=== PATIENT | male | born 1960 | race Caucasian/White ===

== ENCOUNTER → 2016-10-14 | Outpatient (CLI) | payer OTHER ==
[~2016-10-14] MED LIST: ASPI-435 PO; CALC500C70 PO; CHOL100010 PO; CHOL100027 PO; FSM70 PO; LINA1TAB6 PO; LISI-461 PO; MULT-190 PO; SIMV-151 PO; TRIA1SPR4 NAE
[2016-10-14 13:32] LABS: BLOOD UREA NITROGEN 13 mg/dl (7-18); BUN/CREATININE RATIO 16.1 (10-20); CALCIUM 9.1 mg/dl (8.5-10.1); CARBON DIOXIDE 30 mmol/L (21-32); CHLORIDE 105 mmol/L (98-107); GLUCOSE 124 mg/dl (70-99); POTASSIUM 3.9 mmol/L (3.5-5.1); SODIUM 141 mmol/L (136-145)
[2016-10-14 13:43] LABS: THYROID STIMULATING HORMONE 0.348 uIu/ml (0.300-4.500)
[2016-10-14 14:00] LABS: ESTIMATED AVERAGE GLUCOSE 128 mg/dl; HA1C FLAG Normal (Normal)
== END | disposition home or self-care (01) ==
LOC: C.LAB 12:01
PROVIDERS: ATTEND Internal Medicine Geriatric Medicine
DX: E11.9 Type 2 diabetes mellitus without complications (principal); I10 Essential (primary) hypertension; E05.90 Thyrotoxicosis, unspecified without thyrotoxic crisis or storm

== ENCOUNTER 2017-01-01 15:38 | Emergency (ER) | payer OTHER ==
[~2017-01-01] VITALS: Ht 167.6 cm; Wt 64.4 kg
[~2017-01-01 15:38] MED LIST changes: -CHOL100027 PO
[2017-01-01 15:42] VITALS: TEMP 36.8; Ht 167.6 cm; Wt 64.4 kg
[2017-01-01] MEDS ORDERED: SODIUM CHLORIDE 0.9% 1000ML 1,000 ML IV STA (16:27)
[2017-01-01] MEDS ORDERED: CHOL100027 PO (16:29)
[2017-01-01] MEDS ORDERED: OPTIRAY 320 IV PRN (16:45)
[2017-01-01 16:48] VITALS: O2SAT 98
[2017-01-01 16:57] LABS: BASO % 0.3 %; BASO ABS # 0.02 K/uL (0-0.2); COMPLETE YES; EOS % 0.5 %; HEMATOCRIT 46.4 % (42-52); IG% 0.3 %; LYMPH % 13.4 %; LYMPH ABS # 0.99 K/uL (1.2-3.4); MEAN CELL VOLUME 92.1 fL (80-100); MEAN CORPUSCULAR HEMOGLOBIN 31.5 pg (25-34); MEAN CORPUSCULAR HGB CONC 34.3 g/dl (32-36); MEAN PLATELET VOLUME 10.6 fL (7.4-10.4); MONO % 5.9 %; NEUT % 79.6 %; PLATELET COUNT 193 K/uL (130-400); RED BLOOD COUNT 5.04 M/uL (4.7-6.1); WHITE BLOOD COUNT 7.41 K/uL (4.8-10.8)
[2017-01-01 17:05] LABS: ISTAT CREATININE 0.7 mg/dl (0.6-1.3); ISTAT IONIZED CALCIUM 1.2 mmol/l (1.12-1.32)
[2017-01-01 17:10] LABS: URINE APPEARANCE CLOUDY (CLEAR); URINE BILIRUBIN NEG (NEG); URINE COLOR YELLOW; URINE NITRITE NEG (NEG); URINE PH 8.5 (4.5-7.5); URINE SPECIFIC GRAVITY 1.013 (1.000-1.030); UROBILINOGEN NEG (NEG)
[2017-01-01 17:11] LABS: MANUAL MICROSCOPIC REQUIRED? NO; REVIEW REQ? NO
[2017-01-01 17:27] LABS: BUN/CREATININE RATIO 12.6 (10-20); CALCIUM 9.3 mg/dl (8.5-10.1); CREATININE 0.78 mg/dl (0.60-1.40); POTASSIUM 3.5 mmol/L (3.5-5.1)
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
--- NOTE | 2017-01-01 18:32 | DIAGNOSTIC IMAGING REPORT ---
LEFT KNEE 3 VIEWS HISTORY: Left knee pain. COMPARISON: None. FINDINGS: There is no fracture or dislocation. No knee effusion. Punctate densities inferior to the patella on the lateral view and along the superior border of the patella on the frontal view likely represent artifact on the film. No definite radiopaque foreign bodies. IMPRESSION: No fractures. Electronically signed by: Donald Boyd M.D. 01/01/2017 6:31 PM Dictated Date/Time: 01/01/2017 6:29 PM
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
[2017-01-01 20:20] VITALS: BP 128/70; PULSE 70; O2SAT 97
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
== END 2017-01-01 20:21 | disposition home or self-care (01) ==
LOC: EDBD 15:38 → C.EDB 15:38
DX: S22.22XA Fracture of body of sternum, initial encounter for closed fracture (principal); V43.52XA Car driver injured in collision with other type car in traffic accident, initial encounter; Y92.488 Other paved roadways as the place of occurrence of the external cause; F79 Unspecified intellectual disabilities; Z79.82 Long term (current) use of aspirin; Z79.899 Other long term (current) drug therapy

== ENCOUNTER → 2017-07-01 | Outpatient (CLI) | payer OTHER ==
[~2017-07-01] MED LIST changes: -CHOL100010 PO; +CHOL100027 PO; -TRIA1SPR4 NAE
== END | disposition home or self-care (01) ==
LOC: C.MAMM 11:26
PROVIDERS: ATTEND Internal Medicine Geriatric Medicine
DX: M81.0 Age-related osteoporosis without current pathological fracture (principal)

== ENCOUNTER → 2017-11-18 | Outpatient (CLI) | payer OTHER ==
[2017-11-18 14:47] LABS: BASO % 0.4 %; BASO ABS # 0.02 K/uL (0-0.2); EOS % 1.3 %; EOS ABS # 0.06 K/uL (0-0.5); HEMATOCRIT 45.3 % (42-52); HEMOGLOBIN 15.8 g/dL (14.0-18.0); IG# 0.01 K/uL (0.00-0.02); LYMPH % 32.6 %; LYMPH ABS # 1.51 K/uL (1.2-3.4); MEAN CELL VOLUME 92.1 fL (80-100); MEAN CORPUSCULAR HEMOGLOBIN 32.1 pg (25-34); MEAN CORPUSCULAR HGB CONC 34.9 g/dl (32-36); MEAN PLATELET VOLUME 10.8 fL (7.4-10.4); MONO ABS # 0.28 K/uL (0.11-0.59); NEUT % 59.5 %; NEUT ABS # 2.75 K/uL (1.4-6.5); PLATELET COUNT 193 K/uL (130-400); RED CELL DISTRIBUTION WIDTH CV 12.1 % (11.5-14.5); RED CELL DISTRIBUTION WIDTH SD 40.7 fL (36.4-46.3); WHITE BLOOD COUNT 4.63 K/uL (4.8-10.8)
[2017-11-18 15:19] LABS: ALBUMIN 4.2 gm/dl (3.4-5.0); ALT/SGPT 23 U/L (12-78); AST/SGOT 9 U/L (15-37); BLOOD UREA NITROGEN 13 mg/dl (7-18); CALCIUM 8.8 mg/dl (8.5-10.1); CARBON DIOXIDE 30 mmol/L (21-32); CHOLESTEROL 86 mg/dl (0-200); CREATININE 0.83 mg/dl (0.60-1.40); GLUCOSE 121 mg/dl (70-99); POTASSIUM 3.7 mmol/L (3.5-5.1); SODIUM 138 mmol/L (136-145)
[2017-11-18 15:22] LABS: T3 FREE 3.36 pg/ml (2.30-4.20)
[2017-11-18 15:28] LABS: ALKALINE PHOSPHATASE 58 U/L (45-117); LDL CHOLESTEROL CALCULATED 26 mg/dl; TOTAL PROTEIN 7.2 gm/dl (6.4-8.2)
== END | disposition home or self-care (01) ==
LOC: C.LAB 13:32
PROVIDERS: ATTEND Internal Medicine Geriatric Medicine
DX: E11.9 Type 2 diabetes mellitus without complications (principal); I10 Essential (primary) hypertension; E05.90 Thyrotoxicosis, unspecified without thyrotoxic crisis or storm; M81.0 Age-related osteoporosis without current pathological fracture; E78.5 Hyperlipidemia, unspecified; F09 Unspecified mental disorder due to known physiological condition

== ENCOUNTER 2021-04-24 13:00 | Observation (INO) ==
[2021-04-24] MEDS ORDERED: dexAMETHasone**PF** 10 MG/ML VIAL IV ONE (14:09)
--- NOTE | 2021-04-24 14:12 | Emergency Department Note ---
Impression & Plan Angio-edema, Intellectual disability ED Provider Note NAME: GABRIEL BONILLA AGE: 60 SEX: M : 1960 ARRIVES VIA: Walk-In INFORMANT: Patient ED PROVIDER(S): Rigo Harrington DO CHIEF COMPLAINT: Swelling of the tongue HPI: Patient is a 60-year-old male who presents the ER for swelling of the tongue. He has had this before and he was on lisinopril and he stopped it. He woke up this morning and noticed having increased swelling again. He feels exactly the same. He denies any headache or change in vision. He is having trouble swallowing food. No shortness of breath. No chest pain, belly pain, nausea, vomiting, or diarrhea. No other exacerbating or remitting factors. ROS: See above HPI for pertinent positives & negatives. A total of 10 systems reviewed and were otherwise negative. PAST MEDICAL HISTORY:See Below PAST SURGICAL HISTORY:See Below FAMILY HISTORY:See Below SOCIAL HISTORY:See Below HOME MEDICATIONS:See Below ALLERGIES:See Below VITALS:See Below PHYSICAL EXAMINATION: GENERAL: Sitting up in bed, alert, well appearing, well nourished, no distress, non-toxic EYE EXAM: normal conjunctiva. PERRL and EOM's grossly intact. OROPHARYNX: Watery edema swelling of the tongue bilaterally. Right slightly worse than left. Hoarse voice. Swallowing secretions. NECK: supple, no nuchal rigidity, no adenopathy, non-tender LUNGS: Clear to auscultation. Normal chest wall mechanics HEART: no murmurs, S1 normal and S2 normal ABDOMEN: abdomen soft, non-tender, normo-active bowel sounds, no masses, no rebound or guarding. UPPER EXTREMITIES: upper extremities are grossly normal. LOWER EXTREMITIES: No pitting edema. NEURO EXAM: Normal sensorium, cranial nerves II-XII grossly intact, normal speech, no gross weakness of arms, no gross weakness of legs. MEDICAL DECISION MAKING: Patient is a 60-year-old male who presents the ER for swelling of his tongue. He stopped his lisinopril about a week ago as he had this before. IV was established blood was obtained. Labs show no significant leukocytosis or anemia . BMP shows a slightly elevated glucose. He was given some IV insulin. Covid was negative. He was given steroids as well with the edema although I favor this will likely not be beneficial as it is likely angioedema with the watery edema of the tongue. Tongue swelling did improve slightly. With the significant swelling did elect to watch him overnight discussed with Dr. Arriaga. Patient was updated bedside. Triage Nursing notes reviewed. Limited review of prior medical records performed Vital Signs: reviewed and remarkable for HTN Differential diagnosis: Infection, dehydration, metabolic abnormality, hypo/hyperglycemia, electrolyte disturbance, anemia, hypoxia, cardiac sources, intracerebral event, toxicologic, neurologic, as well as other pathologies. ER treatment provided: See below Diagnostics interpreted by me: ECG: none Cardiac Monitoring: An order was placed for continuous cardiac monitoring. The monitor shows a rate of 98 with sinus rhythm. Laboratory studies: As stated above and show below. Imaging studies: See below Consultation(s): Discussed with the hospitalist as stated above Procedures: none Critical Care: None Past Med/Surg History Medical History Arthritis Cerebral palsy Hyperlipidemia Hypertension Intellectual disability Osteoporosis Sternal fracture Subclinical hyperthyroidism Type 2 diabetes mellitus Surgical History History of anesthesia reaction History of colonoscopy History of open reduction and internal fixation (ORIF) procedure Family History Father Colorectal cancer PT IS ADOPTED Social History Smoking Status: Never smoker Second Hand Exposure: Yes (FAMILY SMOKED); Hx Alcohol Use: Yes Hx Substance Use: No Preferred Language: Burundian Communication Ability: Effective Visual Impairment: Partially Limited Hearing Ability: Normal National Coverage Specialist Required: No Beliefs That Will Affect Care: None marital status: Single Current Living Situation: Alone current occupational status: unemployed Feels Safe at Home: Yes Childhood Exposure to Second-Hand Smoke: Yes caffeine: Yes Dental Care, Regularly: No Physical Activity Frequency: Daily Seatbelt Use: always Sunscreen Use: Yes Assistive Devices: Glasses Allergies Allergies Allergy/AdvReac Type Severity Reaction Status Date / Time lisinopril Allergy angioedema Verified 04/24/21 15:17 Home Meds Home Medications Medication Instructions Recorded Confirmed aspirin 81 mg tablet,delayed 81 mg PO QAM tab 03/03/19 04/24/21 release cholecalciferol (vitamin D3) 50 2,000 units PO QAM cap 03/03/19 04/24/21 mcg (2,000 unit) capsule lancets 33 gauge ([employer] Neda #100 ea 03/03/19 03/05/21 Lancets) vit C,E,zinc,copper-uedsb9l 250 1 cap PO QAM 02/16/20 04/24/21 mg-lutein 5 mg-zeaxanthin 1 mg capsule (Ocuvite Adult 50 Plus) diphenhydramine HCl 25 mg tablet 25 mg PO HS PRN tab 04/09/21 04/24/21 (Benadryl Allergy) simvastatin 20 mg tablet 20 mg PO QPM 04/24/21 04/24/21 Previous Rx's Medication Instructions Recorded blood sugar diagnostic ([employer] #300 ea 11/13/20 Ultra Blue Test Strip) amlodipine 5 mg tablet 5 mg PO DAILY #90 tab 04/09/21 atorvastatin 20 mg tablet 20 mg PO QPM #90 tab 04/09/21 metformin 1,000 mg tablet 1,000 mg PO BID #180 tab 04/10/21 Results & Data (ED) Vital Signs Vital Signs - 24 hr 04/24/21 13:15 04/24/21 13:58 04/24/21 16:01 Temperature 36.5 C Temperature Source Temporal Artery Scan Pulse Rate 95 H Pulse Rate [Apical] 81 78 Respiratory Rate 18 16 17 Respiratory Effort / Characteristics Respiratory Depth Respiratory Pattern Blood Pressure 171/89 H Blood Pressure [Left Arm] 155/70 H 148/89 H Blood Pressure Mean 116 Blood Pressure Mean [Left Arm] 98 108 Blood Pressure Position [Left Arm] Pulse Oximetry 98 97 99 Oxygen Delivery Method Room Air Sepsis Recent Fever Within 48 Hours No Sepsis New/Unexplained Change in Mental Status No Sepsis Action Taken by Nursing No Action Required 04/24/21 18:24 04/24/21 19:09 Temperature Temperature Source Pulse Rate Pulse Rate [Apical] 65 99 H Respiratory Rate 18 16 Respiratory Effort / Characteristics Non-Labored Respiratory Depth Normal Respiratory Pattern Regular Blood Pressure Blood Pressure [Left Arm] 148/92 H 141/82 H Blood Pressure Mean Blood Pressure Mean [Left Arm] 110 101 Blood Pressure Position [Left Arm] Sitting Pulse Oximetry 96 95 Oxygen Delivery Method Room Air Sepsis Recent Fever Within 48 Hours Sepsis New/Unexplained Change in Mental Status Sepsis Action Taken by Nursing Laboratory Data Result diagrams: 04/24/21 13:55 10/07/21 13:55 Lab Results 04/24/21 04/24/21 04/24/21 Range/Units 13:55 13:55 14:14 WBC 4.80 (4.8-10.8) K/uL RBC 5.22 (4.7-6.1) M/uL Hgb 16.2 (14.0-18.0) g/dL Hct 47.1 (42-52) % MCV 90.2 (80-100) fL MCH 31.0 (25-34) pg MCHC 34.4 (32-36) g/dL RDW Std Deviation 42.1 (36.4-46.3) fL RDW Coeff of Denise 12.7 (11.5-14.5) % Plt Count 247 (130-400) K/uL MPV 10.8 H (7.4-10.4) fL Immature Gran % (Auto) 0.0 % Neut % (Auto) 55.1 % Lymph % (Auto) 33.1 % [place] % (Auto) 7.5 % Eos % (Auto) 3.5 % Baso % (Auto) 0.8 % Neut # (Auto) 2.64 (1.4-6.5) K/uL Lymph # (Auto) 1.59 (1.2-3.4) K/uL [place] # (Auto) 0.36 (0.11-0.59) K/uL Eos # (Auto) 0.17 (0-0.5) K/uL Baso # (Auto) 0.04 (0-0.2) K/uL Immature Gran # (Auto) 0.00 (0.00-0.02) K/uL Sodium 136 (136-145) mmol/L Potassium 3.7 (3.5-5.1) mmol/L Chloride 104 (98-107) mmol/L Carbon Dioxide 27 (21-32) mmol/L Anion Gap 5.0 (3-11) BUN 14 (7-18) mg/dl Creatinine 1.00 (0.6-1.4) mg/dl Est Cr Clr Drug Dosing 70.0 ml/min Est GFR ( Amer) 93.7 ml/min Est GFR (Non-Af Amer) 80.9 ml/min BUN/Creatinine Ratio 14.3 (10-20) Glucose 268 H (70-99) mg/dl POC Glucose (70-99) mg/dl Calcium 9.5 (8.5-10.1) mg/dl COVID-19 Eval Order Covid19 at [facility] SARS-CoV-2 (PCR) (Negative) 04/24/21 04/24/21 Range/Units 14:14 15:51 WBC (4.8-10.8) K/uL RBC (4.7-6.1) M/uL Hgb (14.0-18.0) g/dL Hct (42-52) % MCV (80-100) fL MCH (25-34) pg MCHC (32-36) g/dL RDW Std Deviation (36.4-46.3) fL RDW Coeff of Denise (11.5-14.5) % Plt Count (130-400) K/uL MPV (7.4-10.4) fL Immature Gran % (Auto) % Neut % (Auto) % Lymph % (Auto) % [place] % (Auto) % Eos % (Auto) % Baso % (Auto) % Neut # (Auto) (1.4-6.5) K/uL Lymph # (Auto) (1.2-3.4) K/uL [place] # (Auto) (0.11-0.59) K/uL Eos # (Auto) (0-0.5) K/uL Baso # (Auto) (0-0.2) K/uL Immature Gran # (Auto) (0.00-0.02) K/uL Sodium (136-145) mmol/L Potassium (3.5-5.1) mmol/L Chloride (98-107) mmol/L Carbon Dioxide (21-32) mmol/L Anion Gap (3-11) BUN (7-18) mg/dl Creatinine (0.6-1.4) mg/dl Est Cr Clr Drug Dosing ml/min Est GFR ( Amer) ml/min Est GFR (Non-Af Amer) ml/min BUN/Creatinine Ratio (10-20) Glucose (70-99) mg/dl POC Glucose 246 H (70-99) mg/dl Calcium (8.5-10.1) mg/dl COVID-19 Eval Order SARS-CoV-2 (PCR) NEGATIVE (Negative) Administered Medications Insulin Aspart (Insulin Aspart 100 Units/Ml 3 Ml Pen) 0 units SC ACHS SUDARSHAN Stop: 05/24/21 16:29 Last Admin: 04/24/21 18:56 Dose: Not Given Documented by: [id number] Discontinued Medications Dexamethasone Sodium Phosphate (DexamethasonePf 10 Mg/Ml Vial) 6 mg IV NOW ONE Stop: 04/24/21 14:10 Last Admin: 04/24/21 14:26 Dose: 6 mg Documented by: [id number] Diphenhydramine HCl (Diphenhydramine 50 Mg/Ml Vial) 25 mg IV NOW STA Stop: 04/24/21 15:54 Last Admin: 04/24/21 16:25 Dose: 25 mg Documented by: [id number] Famotidine (Famotidine 20mg/5ml Iv Push) 20 mg IV ONE STA Stop: 04/24/21 15:54 Last Admin: 04/24/21 16:25 Dose: 20 mg Documented by: [id number] Insulin Human Regular (Novolin-R Insulin Per Unit Charge) 3 units IV NOW STA Stop: 04/24/21 15:53 Last Admin: 04/24/21 16:13 Dose: 3 units Documented by: [id number] Cosigned by: [id number] Discharge Plan Visit Data Chief Complaint: Swelling/Edema to Extremity Stated Complaint: SWOLLEN TONGUE, BIT IT A FEW DAYS AGO ED Provider: Rigo Harrington Discharge Problem: Angio-edema, Intellectual disability Forms Stand Alone Forms: My [facility] Prescriptions Prescriptions: No Action (DME) OneTouch Ultra Blue Test Strip Strip See Dose Instructions .ROUTE .MEDSUPPLY Qty: 300 RF: 3 metformin 1,000 mg tablet 1,000 mg PO BID Qty: 180 RF: 3 diphenhydramine HCl [Benadryl Allergy] 25 mg tablet 25 mg PO HS PRN (Reason: Allergic Symptoms) RF: 0 atorvastatin 20 mg tablet 20 mg PO QPM Qty: 90 RF: 3 amlodipine 5 mg tablet 5 mg PO DAILY Qty: 90 RF: 3 aspirin 81 mg tablet,delayed release (DR/EC) 81 mg PO QAM RF: 0 (DME) lancets [OneTouch Delica Lancets] 33 gauge misc See Dose Instructions .ROUTE .MEDSUPPLY Qty: 100 RF: 0 cholecalciferol (vitamin D3) 2,000 unit capsule 2,000 units PO QAM RF: 0 Ocuvite Adult 50 Plus 250-5-1 mg Capsule 1 cap PO QAM RF: 0 simvastatin 20 mg tablet 20 mg PO QPM RF: 0 Referrals Referrals: Aramis Small, [Primary Care Provider] -
[2021-04-24 14:18] LABS: Basophils # (auto) 0.04 K/uL (0-0.2); Basophils % (auto) 0.8 %; Eosinophils # (auto) 0.17 K/uL (0-0.5); Eosinophils % (auto) 3.5 %; Hematocrit (blood only) 47.1 % (42-52); Hemoglobin 16.2 g/dL (14.0-18.0); Lymphocytes # (auto) 1.59 K/uL (1.2-3.4); Lymphocytes % (auto) 33.1 %; Mean Corpuscular Hgb Conc 34.4 g/dL (32-36); Mean Corpuscular Volume 90.2 fL (80-100); Mean Platelet Volume 10.8 fL (7.4-10.4); Monocytes # (auto) 0.36 K/uL (0.11-0.59); Monocytes % (auto) 7.5 %; Neutrophils # (auto) 2.64 K/uL (1.4-6.5); Neutrophils % (auto) 55.1 %; Platelet Count 247 K/uL (130-400); RDW Coefficient of Variation 12.7 % (11.5-14.5); RDW Standard Deviation 42.1 fL (36.4-46.3); Red Blood Count 5.22 M/uL (4.7-6.1)
[2021-04-24 14:36] LABS: BUN Creatinine Ratio 14.3 (10-20); Calcium 9.5 mg/dl (8.5-10.1); Est GFR (African American) 93.7 ml/min; Est GFR (Non-African American) 80.9 ml/min; Potassium 3.7 mmol/L (3.5-5.1)
[2021-04-24] MEDS ORDERED: NovoLIN-R INSULIN PER UNIT CHARGE IV STA (15:52)
[2021-04-24] MEDS ORDERED: diphenhydrAMINE 50 MG/ML VIAL IV STA (15:53)
[2021-04-24] MEDS ORDERED: FAMOTIDINE 20MG/5ML IV PUSH IV STA (15:53)
[2021-04-24] MEDS ORDERED: GLUCOSE 40% GEL 15 GM TUBE PO PRN (15:59)
[2021-04-24] MEDS ORDERED: CARBOHYDRATES FOR HYPOGLYCEMIA PO PRN (15:59)
[2021-04-24] MEDS ORDERED: GLUCOSE 10 TABS/TUBE PO PRN (15:59)
[2021-04-24] MEDS ORDERED: GLUCAGON FOR INJ 1 MG VIAL SQ PRN (15:59)
[2021-04-24] MEDS ORDERED: DEXTROSE 50% 50 ML SYRINGE IV PRN (15:59)
[2021-04-24] MEDS ORDERED: hydrALAZINE HCL 20 MG/ML VIAL IV PRN (16:12)
--- NOTE | 2021-04-24 16:13 | History & Physical Report ---
Date of Service April 24, 2021 Assessment & Plan (1) Mild tongue swelling: Plan: Tongue swelling- May have had an element of angioedema associated lisinopril 1 week or so ago, but has been off since that time Patient reports similar symptoms when he had eaten peanuts and/or cashews in the past, but is eaten none recently. He did have Meals on Wheels last evening, question with the may been some contaminant in the food. Dexamethasone 6 mg IV given in the ED Dexamethasone 4 mg IV every 6 hours Benadryl 25 mg IV every 4 hours as needed, with first dose given in the ED now Famotidine 20 mg IV every 12 hours, with first dose given in the ED now May have patient follow-up with Dr. Che for allergy/immunology work-up (2) Hypertension: Plan: Hold amlodipine, aspirin until able to take p.o. Hydralazine 10 mg IV every 4 hours as needed systolic blood pressure greater than 160 (3) Hyperlipidemia: Plan: Hold simvastatin/atorvastatin (4) Type 2 diabetes mellitus: Plan: Hold Metformin Placed on Accu-Cheks before meals and at bedtime with NovoLog coverage per scale History of Present Illness Chief Complaint: The patient presents to the emergency department with a recurrence of tongue swelling that began upon awakening this morning. Primary Care Provider: Aramis Small DO The patient is a 60-year-old male with a past medical history including thyroid nodule, uncontrolled diabetes mellitus type 2, hypertension, diabetic neuropathy, hyperlipidemia, subclinical hyperthyroidism, mental retardation, int ellectual disability and osteoporosis. Patient reportedly had an episode of swelling about 1 week ago, while he was on lisinopril, but it stopped at that time. His symptoms had not recurred until this morning. Upon questioning, patient reports that he did have similar symptoms in the past when he had had peanuts or cashews, but reports he has not had any of them for weeks. He does report having Meals on Wheels last evening. The patient denies any issues with chest pain, shortness of breath, dyspnea on exertion or any other systemic symptoms of allergic reaction The patient was given dexamethasone 6 mg IV by the ED, and I added Benadryl 25 mg IV and famotidine 20 mg IV. Allergies Allergy/AdvReac Type Severity Reaction Status Date / Time lisinopril Allergy angioedema Verified 04/24/21 15:17 Home Medications Medication Instructions Recorded Confirmed Type aspirin 81 mg tablet,delayed 81 mg PO QAM tab 03/03/19 04/24/21 History release cholecalciferol (vitamin D3) 50 2,000 units PO QAM cap 03/03/19 04/24/21 History mcg (2,000 unit) capsule lancets 33 gauge ([employer] Neda #100 ea 03/03/19 03/05/21 History Lancets) vit C,E,zinc,copper-onthz2h 250 1 cap PO QAM 02/16/20 04/24/21 History mg-lutein 5 mg-zeaxanthin 1 mg capsule (Ocuvite Adult 50 Plus) blood sugar diagnostic ([employer] #300 ea 11/13/20 03/05/21 Rx Ultra Blue Test Strip) amlodipine 5 mg tablet 5 mg PO DAILY #90 tab 04/09/21 04/24/21 Rx atorvastatin 20 mg tablet 20 mg PO QPM #90 tab 04/09/21 04/24/21 Rx diphenhydramine HCl 25 mg tablet 25 mg PO HS PRN tab 04/09/21 04/24/21 History (Benadryl Allergy) metformin 1,000 mg tablet 1,000 mg PO BID #180 tab 04/10/21 04/24/21 Rx simvastatin 20 mg tablet 20 mg PO QPM 04/24/21 04/24/21 History Past Med/Surg History Medical History Arthritis Cerebral palsy Hyperlipidemia Hypertension Intellectual disability Osteoporosis Sternal fracture Subclinical hyperthyroidism Type 2 diabetes mellitus Surgical History History of anesthesia reaction History of colonoscopy History of open reduction and internal fixation (ORIF) procedure Family History Father Colorectal cancer PT IS ADOPTED Social History Smoking Status: Never smoker Second Hand Exposure: Yes (FAMILY SMOKED); Hx Alcohol Use: Yes Hx Substance Use: No Preferred Language: Marshallese Communication Ability: Effective Visual Impairment: Partially Limited Hearing Ability: Normal Customer Success Intern Required: No Beliefs That Will Affect Care: None marital status: Single Current Living Situation: Alone current occupational status: unemployed Feels Safe at Home: Yes Childhood Exposure to Second-Hand Smoke: Yes caffeine: Yes Dental Care, Regularly: No Physical Activity Frequency: Daily Seatbelt Use: always Sunscreen Use: Yes Assistive Devices: Glasses Review of Systems Review of Systems: The patient denies chest pain, palpitations, shortness of breath, dyspnea on exertion, cough, lower extremity swelling, sore throat, fevers, chills, sweats, weight change, fatigue, nausea, vomiting, diarrhea , constipation, abdominal pain, pelvic pain, blood in urine or stool, dysuria, urinary frequency or urgency, lightheadedness, dizziness, headache, memory loss, loss of consciousness, rash, abnormal bruising or bleeding, imbalance, focal or generalized weakness, numbness or tingling in arms or legs, generalized arthralgias or myalgias, back or neck pain, or night sweats. The review of systems is otherwise negative other than for that already noted above, and at least 10 systems have been reviewed. Physical Exam Physical Exam: The patient is awake, alert and oriented 3, well developed and well nourished, normocephalic and atraumatic, lying in bed and in no acute distress. HEENT--PERRL, EOMI, mucous membranes and oropharynx normal. Tongue is mild to moderately enlarged, patient still able to swallow secretions. Neck--supple. No JVD. No bruits. Thyroid normal, trachea midline, no adenopathy. Heart--normal S1 and S2. No murmurs, rubs or gallops. Lungs--clear bilaterally, no respiratory distress, no accessory muscle use. Abdomen--normal bowel sounds and soft. Nontender. Nondistended, no hernias or masses, no organomegaly. Extremities--no cyanosis or clubbing. No edema. There are good distal pulses b/l. Dermatologic--normal skin turgor, normal color, no abnormal lymph nodes, no rash. Neurologic--cranial nerves II through XII grossly intact. Rheumatologic--normal range of motion. Psychiatric--normal affect. Results & Data Results & Data ([facility]) Vital Signs (Past 12 Hours) Vital Signs Temp Pulse Pulse Resp BP BP Pulse Ox 04/24/21 13:58 81 16 155/70 H 97 04/24/21 13:15 97.7 F 95 H 18 171/89 H 98 Laboratory Results Laboratory Results WBC 4.80 K/uL (4.8-10.8) 04/24/21 13:55 RBC 5.22 M/uL (4.7-6.1) 04/24/21 13:55 Hgb 16.2 g/dL (14.0-18.0) 04/24/21 13:55 Hct 47.1 % (42-52) 04/24/21 13:55 MCV 90.2 fL (80-100) 04/24/21 13:55 MCH 31.0 pg (25-34) 04/24/21 13:55 MCHC 34.4 g/dL (32-36) 04/24/21 13:55 RDW Std Deviation 42.1 fL (36.4-46.3) 04/24/21 13:55 RDW Coeff of Denise 12.7 % (11.5-14.5) 04/24/21 13:55 Plt Count 247 K/uL (130-400) 04/24/21 13:55 MPV 10.8 fL (7.4-10.4) H 04/24/21 13:55 Immature Gran % (Auto) 0.0 % 04/24/21 13:55 Neut % (Auto) 55.1 % 04/24/21 13:55 Lymph % (Auto) 33.1 % 04/24/21 13:55 [place] % (Auto) 7.5 % 04/24/21 13:55 Eos % (Auto) 3.5 % 04/24/21 13:55 Baso % (Auto) 0.8 % 04/24/21 13:55 Neut # (Auto) 2.64 K/uL (1.4-6.5) 04/24/21 13:55 Lymph # (Auto) 1.59 K/uL (1.2-3.4) 04/24/21 13:55 [place] # (Auto) 0.36 K/uL (0.11-0.59) 04/24/21 13:55 Eos # (Auto) 0.17 K/uL (0-0.5) 04/24/21 13:55 Baso # (Auto) 0.04 K/uL (0-0.2) 04/24/21 13:55 Immature Gran # (Auto) 0.00 K/uL (0.00-0.02) 04/24/21 13:55 Sodium 136 mmol/L (136-145) 04/24/21 13:55 Potassium 3.7 mmol/L (3.5-5.1) 04/24/21 13:55 Chloride 104 mmol/L (98-107) 04/24/21 13:55 Carbon Dioxide 27 mmol/L (21-32) 04/24/21 13:55 Anion Gap 5.0 (3-11) 04/24/21 13:55 BUN 14 mg/dl (7-18) 04/24/21 13:55 Creatinine 1.00 mg/dl (0.6-1.4) 04/24/21 13:55 Est Cr Clr Drug Dosing 70.0 ml/min 04/24/21 13:55 Est GFR ( Amer) 93.7 ml/min 04/24/21 13:55 Est GFR (Non-Af Amer) 80.9 ml/min 04/24/21 13:55 BUN/Creatinine Ratio 14.3 (10-20) 04/24/21 13:55 Glucose 268 mg/dl (70-99) H 04/24/21 13:55 POC Glucose 246 mg/dl (70-99) H 04/24/21 15:51 Calcium 9.5 mg/dl (8.5-10.1) 04/24/21 13:55 COVID-19 Eval Order Covid19 at [facility] 04/24/21 14:14 SARS-CoV-2 (PCR) NEGATIVE (Negative) 04/24/21 14:14 Code Status & VTE Plan Code Status Full code VTE Prophylaxis Plan VTE Prophylaxis will be ordered: Yes PG Care Time/CCT Total # of Minutes Spent Total Time Spent with Patient: Total time spent is greater than 50% in coordination of care (as documented) at patient's floor/unit and/or counseling patient: Coding Level of Care Code INT OBSERVATION CARE 70M LVL 3 Diagnoses Mild tongue swelling R22.0 Hypertension I10 Hypertension type: essential hypertension Hyperlipidemia E78.5 Hyperlipidemia type: unspecified Type 2 diabetes mellitus E11.9 Diabetes mellitus fpc insulin use: without fpc use Diabetes mellitus complication status: without complication (1) Hypertension Hypertension type: essential hypertension Qualified Code(s): I10 - Essential (primary) hypertension (2) Hyperlipidemia Hyperlipidemia type: unspecified Qualified Code(s): E78.5 - Hyperlipidemia, unspecified (3) Type 2 diabetes mellitus Diabetes mellitus fpc insulin use: without fpc use Diabetes mellitus complication status: without complication Qualified Code(s): E11.9 - Type 2 diabetes mellitus without complications
[2021-04-24] MEDS: INSULIN ASPART 100 UNITS/ML 3 ML PEN SC SCH ×3 (18:56→22:04)
[2021-04-24] MEDS ORDERED: ONDANSETRON INJ 2 MG/ML 2 ML VIAL IV PRN (22:26)
[2021-04-24] MEDS ORDERED: diphenhydrAMINE 50 MG/ML VIAL IV PRN (22:26)
[2021-04-25] MEDS: NSS + 20MEQ KCL 20 MEQ/1,000 ML BAG IV SCH ×3 (00:10→20:37)
[2021-04-25] MEDS: dexAMETHasone 4 MG in SYRINGE 0 ML IV SCH ×3 (00:11→12:12)
[2021-04-25] MEDS: FAMOTIDINE 20 MG in SYRINGE 3 ML IV SCH ×3 (00:11→20:24)
[2021-04-25] MEDS: INSULIN ASPART 100 UNITS/ML 3 ML PEN SC SCH ×7 (00:25→20:24)
[2021-04-25 05:34] LABS: Hematocrit (blood only) 45.4 % (42-52); Hemoglobin 15.4 g/dL (14.0-18.0); Immature Granulocytes # (auto) 0.01 K/uL (0.00-0.02); Immature Granulocytes % (auto) 0.1 %; Lymphocytes # (auto) 0.81 K/uL (1.2-3.4); Lymphocytes % (auto) 8.6 %; Mean Corpuscular Hemoglobin 30.3 pg (25-34); Mean Corpuscular Hgb Conc 33.9 g/dL (32-36); Mean Corpuscular Volume 89.4 fL (80-100); Mean Platelet Volume 10.7 fL (7.4-10.4); Monocytes # (auto) 0.12 K/uL (0.11-0.59); Monocytes % (auto) 1.3 %; Neutrophils # (auto) 8.43 K/uL (1.4-6.5); Platelet Count 257 K/uL (130-400); RDW Coefficient of Variation 12.7 % (11.5-14.5); RDW Standard Deviation 41.6 fL (36.4-46.3); Red Blood Count 5.08 M/uL (4.7-6.1); White Blood Count 9.37 K/uL (4.8-10.8)
[2021-04-25 06:06] LABS: Albumin Level 3.7 gm/dl (3.4-5.0); BUN Creatinine Ratio 19.8 (10-20); Calcium 8.5 mg/dl (8.5-10.1); Creatinine Clr Calc Pharmacy 81.4 ml/min; Est GFR (African American) 108.5 ml/min; Est GFR (Non-African American) 93.6 ml/min; Potassium 3.9 mmol/L (3.5-5.1)
[2021-04-25 06:08] LABS: Albumin Globulin Ratio 1.2 (0.9-2); Bilirubin,Total 0.8 mg/dl (0.2-1); Globulin 3.2 gm/dl (2.5-4.0); Total Protein 6.9 gm/dl (6.4-8.2)
[2021-04-25 07:33] LABS: Estimated Average Glucose 217 mg/dl; Hemoglobin A1C 9.2 % (4.5-5.6)
--- NOTE | 2021-04-25 09:38 | Hospitalist Progress Note ---
Date of Service April 25, 2021 Assessment & Plan (1) Mild tongue swelling: Plan: Tongue swelling- May have had an element of angioedema associated lisinopril 1 week or so ago, but has been off since that time Patient reports similar symptoms when he had eaten peanuts and/or cashews in the past, but is eaten none recently. He did have Meals on Wheels last evening, question with the may been some contaminant in the food. Dexamethasone 6 mg IV given in the ED --> continued on dexamethasone 4mg Q6H and will decrease to 2mg Q6H this afternoon then 2mg IV BID --> Plans to de-escalate to oral prednisone tomorrow if able Benadryl prn Famotidine IV BID Pharmacy consulted for glycemic control in patient with DM on metformin 1gm BID (prior on Janumet d/c dt cost) with A1c 9.2 BSGs were elevated, obv due to steroids Tightened ISS this morning and consulted pharmacy Patient just got 30u Glargine Clear liquid diet --> advance as tolerated. NO PEANUTS?CASHEWS --> Will have CM arrange for f/u with allergy/immunology for work-up. Appt for 05/01 @ 11am arranged with [facility] Continue to monitor (2) Hypertension: Plan: Hold amlodipine, aspirin until able to take p.o. --> resumed amlodipine as BPs elevated likely due to steroids Hydralazine 10 mg IV every 4 hours as needed systolic blood pressure greater than 160 BP currently 126/76 Continue to monitor (3) Hyperlipidemia: Plan: Hold simvastatin/atorvastatin for now, can resume in AM but will need clarified as unusual to be on both? (4) Type 2 diabetes mellitus: Plan: Hold Metformin while inpatient Glucose on AM labs 270 A1c 9.2, uncontrolled States they have been high at home but better when on Janumet in the past with ranges in the 100s vs 2-300s --> states this was stopped he was told because too $$ Discussed not safe for d/c on high dose steroids without coverage ?ability for insulin ability for patient or for aide Pharmacy consulted given IV steroids DM educator consulted Continue to monitor Admission and Anticipated Discharge Date Admission Date: April 24, 2021 Supervising Physician Co-Signing Physician Notes Attending Attestation - Chart reviewed, care plan d/w CAIN Boo. I agree with the chatterjee components of her documentation. Jose Martin Sandoval MD Subjective Seen in morning, doing well, anxious for when he will be going home and risk of contacting covid Intellect delay, talking without issue, some muffling of words due to mild tongue swelling. able to handle secretions, no difficulty swallowing discussed issue with d/c today regarding elevated sugars/DM and need for DM education and insulin therapy/teaching. States sugars in 2-300s at home. Notes he was previously on Janumet in past but d/c'd he was told he thinks because of cost. Steroid dose pack prior with improvement but came back Wednesday, thinks they may have used peanut/cashew oil with his meals on wheels as he had issues with this in the past. Discussed follow up with Allergy/Immunology Hasn't gotten BP meds and concerns because it had been high and he was checking twice a day at home. worried and want to go soon because of doctor follow ups sugars up and may need additional coverage. never did insulin. unsure if would be able. discussed needing maybe a Juanita monitor as he mentions a censor for his arm to check sugars when asked about trying to leave today he mentions "you can give me the steroids for my sugars". Explained opposite process and will have DM educator and pharmacy consulted as patient likely would benefit from insulin at d/c and will def need while on prednisone. No fever, chills, cp/sob, inability to swallow/painful swallowing, abdominal pain, nausea or vomiting. He has not eaten since admission and discussed trying clears and advancing as tolerated. Review of Systems Review of Systems: All systems reviewed & are unremarkable except as noted in HPI & below Physical Exam Physical Exam: The patient is awake, alert and oriented 3, well developed and well nourished, normocephalic and atraumatic, lying in bed and in no acute distress. HEENT--PERRL, EOMI, mucous membranes and oropharynx normal. Tongue is MILD enlarged, patient still able to swallow secretions. no uvular deviation. small area erythema floor of mouth in region of L adelaida's duct, non-painful to touch Neck--supple. No JVD. No bruits. Thyroid normal, trachea midline without deviation Heart--normal S1 and S2. No murmurs, rubs or gallops. Lungs--clear bilaterally, no respiratory distress, no accessory muscle use. Abdomen--normal bowel sounds and soft. Nontender. Nondistended, no hernias or masses, no organomegaly. Extremities--no cyanosis or clubbing. No edema. There are good distal pulses b/l. Dermatologic--normal skin turgor, normal color, no abnormal lymph nodes, no rash. Neurologic--cranial nerves II through XII grossly intact. Rheumatologic--normal range of motion. Psychiatric- AOx3, pleasant but anxious and pressured speech, cooperative and polite Results & Data Results & Data ([facility]) Vital Signs (Past 12 Hours) Vital Signs Temp Pulse Pulse Resp BP Pulse Ox Pulse Ox 04/25/21 08:00 37.1 C 91 H 18 159/85 H 98 04/25/21 04:55 36.8 C 77 21 138/96 97 04/25/21 00:51 36.8 C 99 H 21 136/77 98 04/25/21 00:42 99 04/25/21 00:41 137/93 04/25/21 00:00 98 H 16 92 04/24/21 23:00 100 H 18 93 04/24/21 21:43 108 H 20 152/93 H 95 Laboratory Results 04/25/21 04/25/21 04/25/21 Range/Units 05:33 05:14 05:14 WBC 9.37 (4.8-10.8) K/uL RBC 5.08 (4.7-6.1) M/uL Hgb 15.4 (14.0-18.0) g/dL Hct 45.4 (42-52) % MCV 89.4 (80-100) fL MCH 30.3 (25-34) pg MCHC 33.9 (32-36) g/dL RDW Std Deviation 41.6 (36.4-46.3) fL RDW Coeff of Denise 12.7 (11.5-14.5) % Plt Count 257 (130-400) K/uL MPV 10.7 H (7.4-10.4) fL Immature Gran % (Auto) 0.1 % Neut % (Auto) 90.0 % Lymph % (Auto) 8.6 % [place] % (Auto) 1.3 % Eos % (Auto) 0.0 % Baso % (Auto) 0.0 % Neut # (Auto) 8.43 H (1.4-6.5) K/uL Lymph # (Auto) 0.81 L (1.2-3.4) K/uL [place] # (Auto) 0.12 (0.11-0.59) K/uL Eos # (Auto) 0.00 (0-0.5) K/uL Baso # (Auto) 0.00 (0-0.2) K/uL Immature Gran # (Auto) 0.01 (0.00-0.02) K/uL Sodium 139 (136-145) mmol/L Potassium 3.9 (3.5-5.1) mmol/L Chloride 108 H (98-107) mmol/L Carbon Dioxide 25 (21-32) mmol/L Anion Gap 6.0 (3-11) BUN 17 (7-18) mg/dl Creatinine 0.86 (0.6-1.4) mg/dl Est Cr Clr Drug Dosing 81.4 ml/min Est GFR ( Amer) 108.5 ml/min Est GFR (Non-Af Amer) 93.6 ml/min BUN/Creatinine Ratio 19.8 (10-20) Glucose 270 H (70-99) mg/dl POC Glucose 248 H (70-99) mg/dl Estimat Average Glucose mg/dl Hemoglobin A1c (4.5-5.6) % Calcium 8.5 (8.5-10.1) mg/dl Total Bilirubin 0.8 (0.2-1) mg/dl AST 8 L (15-37) U/L ALT 29 (12-78) U/L Alkaline Phosphatase 60 (45-117) U/L Total Protein 6.9 (6.4-8.2) gm/dl Albumin 3.7 (3.4-5.0) gm/dl Globulin 3.2 (2.5-4.0) gm/dl Albumin/Globulin Ratio 1.2 (0.9-2) COVID-19 Eval Order SARS-CoV-2 (PCR) (Negative) 04/25/21 04/25/21 04/25/21 Range/Units 05:14 01:53 00:22 WBC (4.8-10.8) K/uL RBC (4.7-6.1) M/uL Hgb (14.0-18.0) g/dL Hct (42-52) % MCV (80-100) fL MCH (25-34) pg MCHC (32-36) g/dL RDW Std Deviation (36.4-46.3) fL RDW Coeff of Denise (11.5-14.5) % Plt Count (130-400) K/uL MPV (7.4-10.4) fL Immature Gran % (Auto) % Neut % (Auto) % Lymph % (Auto) % [place] % (Auto) % Eos % (Auto) % Baso % (Auto) % Neut # (Auto) (1.4-6.5) K/uL Lymph # (Auto) (1.2-3.4) K/uL [place] # (Auto) (0.11-0.59) K/uL Eos # (Auto) (0-0.5) K/uL Baso # (Auto) (0-0.2) K/uL Immature Gran # (Auto) (0.00-0.02) K/uL Sodium (136-145) mmol/L Potassium (3.5-5.1) mmol/L Chloride (98-107) mmol/L Carbon Dioxide (21-32) mmol/L Anion Gap (3-11) BUN (7-18) mg/dl Creatinine (0.6-1.4) mg/dl Est Cr Clr Drug Dosing ml/min Est GFR ( Amer) ml/min Est GFR (Non-Af Amer) ml/min BUN/Creatinine Ratio (10-20) Glucose (70-99) mg/dl POC Glucose 278 H 242 H (70-99) mg/dl Estimat Average Glucose 217 mg/dl Hemoglobin A1c 9.2 H (4.5-5.6) % Calcium (8.5-10.1) mg/dl Total Bilirubin (0.2-1) mg/dl AST (15-37) U/L ALT (12-78) U/L Alkaline Phosphatase (45-117) U/L Total Protein (6.4-8.2) gm/dl Albumin (3.4-5.0) gm/dl Globulin (2.5-4.0) gm/dl Albumin/Globulin Ratio (0.9-2) COVID-19 Eval Order SARS-CoV-2 (PCR) (Negative) 04/24/21 04/24/21 04/24/21 Range/Units 21:40 15:51 14:14 WBC (4.8-10.8) K/uL RBC (4.7-6.1) M/uL Hgb (14.0-18.0) g/dL Hct (42-52) % MCV (80-100) fL MCH (25-34) pg MCHC (32-36) g/dL RDW Std Deviation (36.4-46.3) fL RDW Coeff of Denise (11.5-14.5) % Plt Count (130-400) K/uL MPV (7.4-10.4) fL Immature Gran % (Auto) % Neut % (Auto) % Lymph % (Auto) % [place] % (Auto) % Eos % (Auto) % Baso % (Auto) % Neut # (Auto) (1.4-6.5) K/uL Lymph # (Auto) (1.2-3.4) K/uL [place] # (Auto) (0.11-0.59) K/uL Eos # (Auto) (0-0.5) K/uL Baso # (Auto) (0-0.2) K/uL Immature Gran # (Auto) (0.00-0.02) K/uL Sodium (136-145) mmol/L Potassium (3.5-5.1) mmol/L Chloride (98-107) mmol/L Carbon Dioxide (21-32) mmol/L Anion Gap (3-11) BUN (7-18) mg/dl Creatinine (0.6-1.4) mg/dl Est Cr Clr Drug Dosing ml/min Est GFR ( Amer) ml/min Est GFR (Non-Af Amer) ml/min BUN/Creatinine Ratio (10-20) Glucose (70-99) mg/dl POC Glucose 296 H 246 H (70-99) mg/dl Estimat Average Glucose mg/dl Hemoglobin A1c (4.5-5.6) % Calcium (8.5-10.1) mg/dl Total Bilirubin (0.2-1) mg/dl AST (15-37) U/L ALT (12-78) U/L Alkaline Phosphatase (45-117) U/L Total Protein (6.4-8.2) gm/dl Albumin (3.4-5.0) gm/dl Globulin (2.5-4.0) gm/dl Albumin/Globulin Ratio (0.9-2) COVID-19 Eval Order SARS-CoV-2 (PCR) NEGATIVE (Negative) 04/24/21 04/24/21 04/24/21 Range/Units 14:14 13:55 13:55 WBC 4.80 (4.8-10.8) K/uL RBC 5.22 (4.7-6.1) M/uL Hgb 16.2 (14.0-18.0) g/dL Hct 47.1 (42-52) % MCV 90.2 (80-100) fL MCH 31.0 (25-34) pg MCHC 34.4 (32-36) g/dL RDW Std Deviation 42.1 (36.4-46.3) fL RDW Coeff of Denise 12.7 (11.5-14.5) % Plt Count 247 (130-400) K/uL MPV 10.8 H (7.4-10.4) fL Immature Gran % (Auto) 0.0 % Neut % (Auto) 55.1 % Lymph % (Auto) 33.1 % [place] % (Auto) 7.5 % Eos % (Auto) 3.5 % Baso % (Auto) 0.8 % Neut # (Auto) 2.64 (1.4-6.5) K/uL Lymph # (Auto) 1.59 (1.2-3.4) K/uL [place] # (Auto) 0.36 (0.11-0.59) K/uL Eos # (Auto) 0.17 (0-0.5) K/uL Baso # (Auto) 0.04 (0-0.2) K/uL Immature Gran # (Auto) 0.00 (0.00-0.02) K/uL Sodium 136 (136-145) mmol/L Potassium 3.7 (3.5-5.1) mmol/L Chloride 104 (98-107) mmol/L Carbon Dioxide 27 (21-32) mmol/L Anion Gap 5.0 (3-11) BUN 14 (7-18) mg/dl Creatinine 1.00 (0.6-1.4) mg/dl Est Cr Clr Drug Dosing 70.0 ml/min Est GFR ( Amer) 93.7 ml/min Est GFR (Non-Af Amer) 80.9 ml/min BUN/Creatinine Ratio 14.3 (10-20) Glucose 268 H (70-99) mg/dl POC Glucose (70-99) mg/dl Estimat Average Glucose mg/dl Hemoglobin A1c (4.5-5.6) % Calcium 9.5 (8.5-10.1) mg/dl Total Bilirubin (0.2-1) mg/dl AST (15-37) U/L ALT (12-78) U/L Alkaline Phosphatase (45-117) U/L Total Protein (6.4-8.2) gm/dl Albumin (3.4-5.0) gm/dl Globulin (2.5-4.0) gm/dl Albumin/Globulin Ratio (0.9-2) COVID-19 Eval Order Covid19 at [facility] SARS-CoV-2 (PCR) (Negative) PG Care Time/CCT Total # of Minutes Spent Total Time Spent with Patient: Total time spent is greater than 50% in coordination of care (as documented) at patient's floor/unit and/or counseling patient: Coding Level of Care Code 61020 Subseq Obs Care Lvl 3 Diagnoses Mild tongue swelling R22.0 Hypertension I10 Hypertension type: essential hypertension Hyperlipidemia E78.5 Hyperlipidemia type: unspecified Type 2 diabetes mellitus E11.9 Diabetes mellitus complication status: without complication Diabetes mellitus long-term insulin use: without salvage determiner use (1) Type 2 diabetes mellitus Diabetes mellitus complication status: without complication Diabetes mellitus salvage determiner insulin use: without long-term use Qualified Code(s): E11.9 - Type 2 diabetes mellitus without complications (2) Hyperlipidemia Hyperlipidemia type: unspecified Qualified Code(s): E78.5 - Hyperlipidemia, unspecified (3) Hypertension Hypertension type: essential hypertension Qualified Code(s): I10 - Essential (primary) hypertension
[2021-04-25] MEDS ORDERED: PHARMACY GLYCEMIC MGMT CONSULT PRN (12:04)
[2021-04-25] MEDS ORDERED: amLODIPine BESYLATE 5 MG TAB PO ONE (12:23)
[2021-04-25] MEDS ORDERED: INSULIN GLARGINE SOLOSTAR 100 UNITS/ML 3 ML PEN SC ONE (13:00)
[2021-04-25] MEDS ORDERED: dexAMETHasone 2 MG in SYRINGE 0 ML IV SCH (14:00)
[2021-04-25] MEDS: ASPIRIN 81 MG ECTAB PO SCH (19:37)
[2021-04-25] MEDS: dexAMETHasone 2 MG in SYRINGE 0 ML IV SCH (20:23)
[2021-04-26] MEDS: INSULIN ASPART 100 UNITS/ML 3 ML PEN SC SCH ×4 (00:01→12:55)
[2021-04-26] MEDS ORDERED: Nursing to Pharmacy Communication SCH (07:00)
--- NOTE | 2021-04-26 07:56 | Hospitalist Progress Note ---
Date of Service April 26, 2021 Assessment & Plan Admission and Anticipated Discharge Date Admission Date: April 24, 2021 Results & Data Results & Data ([facility]) Vital Signs (Past 12 Hours) Vital Signs Temp Pulse Pulse Resp BP BP Pulse Ox 04/26/21 07:40 36.6 C 70 18 129/77 98 04/26/21 07:30 60 04/26/21 03:41 36.4 C L 71 18 147/79 H 96 04/25/21 23:44 36.9 C 96 H 20 161/95 H 92 04/25/21 22:19 97 H Laboratory Results 04/26/21 04/26/21 04/25/21 Range/Units 07:26 03:53 23:55 POC Glucose 199 H 157 H 179 H (70-99) mg/dl 04/25/21 04/25/21 04/25/21 Range/Units 20:19 16:25 12:00 POC Glucose 222 H 275 H 250 H (70-99) mg/dl PG Care Time/CCT Total # of Minutes Spent Total Time Spent with Patient: Total time spent is greater than 50% in coordination of care (as documented) at patient's floor/unit and/or counseling patient: Coding
[2021-04-26] MEDS: ASPIRIN 81 MG ECTAB PO SCH (08:31)
[2021-04-26] MEDS: FAMOTIDINE 20 MG in SYRINGE 3 ML IV SCH (08:43)
[2021-04-26] MEDS: dexAMETHasone 2 MG in SYRINGE 0 ML IV SCH (08:43)
[2021-04-26] MEDS: NSS + 20MEQ KCL 20 MEQ/1,000 ML BAG IV SCH (08:47)
[2021-04-26] MEDS ORDERED: amLODIPine BESYLATE 5 MG TAB PO SCH (09:00)
[2021-04-26] MEDS ORDERED: INSULIN GLARGINE SOLOSTAR 100 UNITS/ML 3 ML PEN SC SCH ×2 (09:00)
[2021-04-26 09:24] LABS: Hematocrit (blood only) 46.8 % (42-52); Hemoglobin 15.8 g/dL (14.0-18.0); Immature Granulocytes # (auto) 0.02 K/uL (0.00-0.02); Immature Granulocytes % (auto) 0.2 %; Lymphocytes # (auto) 1.74 K/uL (1.2-3.4); Lymphocytes % (auto) 15.2 %; Mean Corpuscular Hemoglobin 30.8 pg (25-34); Mean Corpuscular Hgb Conc 33.8 g/dL (32-36); Mean Corpuscular Volume 91.2 fL (80-100); Mean Platelet Volume 10.8 fL (7.4-10.4); Monocytes # (auto) 0.51 K/uL (0.11-0.59); Monocytes % (auto) 4.5 %; Neutrophils # (auto) 9.16 K/uL (1.4-6.5); Neutrophils % (auto) 80.1 %; Platelet Count 251 K/uL (130-400); RDW Coefficient of Variation 13.1 % (11.5-14.5); RDW Standard Deviation 43.3 fL (36.4-46.3); Red Blood Count 5.13 M/uL (4.7-6.1); White Blood Count 11.43 K/uL (4.8-10.8)
[2021-04-26 09:45] LABS: Albumin Globulin Ratio 1.1 (0.9-2); Albumin Level 3.9 gm/dl (3.4-5.0); BUN Creatinine Ratio 16.7 (10-20); Bilirubin,Total 1.2 mg/dl (0.2-1); Calcium 8.6 mg/dl (8.5-10.1); Creatinine Clr Calc Pharmacy 83.3 ml/min; Est GFR (African American) 109.5 ml/min; Est GFR (Non-African American) 94.5 ml/min; Globulin 3.4 gm/dl (2.5-4.0); Potassium 3.9 mmol/L (3.5-5.1); Total Protein 7.3 gm/dl (6.4-8.2)
--- NOTE | 2021-04-26 10:34 | Pharmacy Report ---
Pharmacy Glycemic Short Note 2 - Date of Service April 26, 2021 - Glycemic Short BSG Results (Last 24 hours): 04/25/21 04/25/21 04/25/21 12:00 16:25 20:19 Glucose POC Glucose 250 H 275 H 222 H 04/25/21 04/26/21 04/26/21 23:55 03:53 07:26 Glucose POC Glucose 179 H 157 H 199 H 04/26/21 09:07 Glucose 224 H POC Glucose OUTPATIENT ANTIDIABETIC REGIMEN: * Metformin * A1c = 9.2% on 04/25/21 ASSESSMENT: * 60yo T2DM male with poor outpatient control per A1c * Pt with sustained hyperglycemia secondary to baseline diabetes and high dose RTC steroids with dexamethasone * Will continue with high stress, weight based SQ basal bolus insulin dosing for insulin naive patients and titrate based on BSG trends. * Pt has received 65 units of insulin over the past 24hrs * 30 units of basal with Lantus * 35 units of bolus with NovoLog * All BSG > 200- increase basal insulin and tighten CF/CR PLAN FOR INPATIENT GLYCEMIC CONTROL: * Hold outpatient oral diabetes medications * Basal insulin * Lantus 35 units SQ daily * Bolus insulin * NovoLog per scale ACHS or Q6hrs while NPO * Goal Range: Low 110 mg/dL - High 140 mg/dL * Correction Factor: 10 mg/dL/unit * Nutritional / Prandial insulin per carb ratio of 1 unit per 4 grams CHO consumed PLAN FOR DISCHARGE: * A1c = 9.2% on 04/25/21 * Goal A1c <7% based on age/co-morbidities * A1c is between 8% and 10% consider dual combination therapy * Metformin + additional agent listed below. 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 Will opt for low cost option choice to increase compliance. Pt was on Janumet but dc d/t expense. * Chose one option: * Sulfonylurea: high efficacy, high hypo risk, weight gain, low cost * Thiazolidinedione (TZD): high efficacy, low hypo risk, weight gain, significant side effects (edema, HF, fxs), low cost * Human insulin (NPH or premixed formulations): high efficacy, weight gain, minimal side effects
[2021-04-26] MEDS ORDERED: hydroCHLOROthiazide 25 MG TAB PO STA (14:34)
--- NOTE | 2021-04-26 16:11 | Discharge Summary ---
Date of Service April 26, 2021 Admission HPI Per Admitting Provider The patient is a 60-year-old male with a past medical history including thyroid nodule, uncontrolled diabetes mellitus type 2, hypertension, diabetic neuropathy, hyperlipidemia, subclinical hyperthyroidism, mental retardation, intellectual disability and osteoporosis. Patient reportedly had an episode of swelling about 1 week ago, while he was on lisinopril, but it stopped at that time. His symptoms had not recurred until this morning. Upon questioning, patient reports that he did have similar symptoms in the past when he had had peanuts or cashews, but reports he has not had any of them for weeks. He does report having Meals on Wheels last evening. The patient denies any issues with chest pain, shortness of breath, dyspnea on exertion or any other systemic symptoms of allergic reaction The patient was given dexamethasone 6 mg IV by the ED, and I added Benadryl 25 mg IV and famotidine 20 mg IV. Admission Exam Per Admitting Provider The patient is awake, alert and oriented 3, well developed and well nourished, normocephalic and atraumatic, lying in bed and in no acute distress. HEENT--PERRL, EOMI, mucous membranes and oropharynx normal. Tongue is mild to moderately enlarged, patient still able to swallow secretions. Neck--supple. No JVD. No bruits. Thyroid normal, trachea midline, no adenopathy. Heart--normal S1 and S2. No murmurs, rubs or gallops. Lungs--clear bilaterally, no respiratory distress, no accessory muscle use. Abdomen--normal bowel sounds and soft. Nontender. Nondistended, no hernias or masses, no organomegaly. Extremities--no cyanosis or clubbing. No edema. There are good distal pulses b/l. Dermatologic--normal skin turgor, normal color, no abnormal lymph nodes, no rash. Neurologic--cranial nerves II through XII grossly intact. Rheumatologic--normal range of motion. Psychiatric--normal affect. Principal Diagnosis Angioedema Discharge Exam The patient is awake, alert and oriented 3, well developed and well nourished, normocephalic and atraumatic, sitting up dressed at the side of the bed, no acute distress. HEENT--PERRL, EOMI, mucous membranes and oropharynx moist. Tongue is minimally enlarged. handling secretions and diet without issue. no uvular deviation. small area erythema floor of mouth in region of L adelaida's duct, non-painful to touch Neck--supple. No JVD. No bruits. Thyroid normal, trachea midline without deviation Heart--normal S1 and S2. No murmurs, rubs or gallops. Lungs--clear bilaterally, no respiratory distress, no accessory muscle use. Abdomen--normal bowel sounds and soft. Nontender. Nondistended, no hernias or masses, no organomegaly. Extremities--no cyanosis or clubbing. No edema. There are good distal pulses b/l. Dermatologic--normal skin turgor, normal color, no abnormal lymph nodes, no rash. Neurologic--cranial nerves II through XII grossly intact. Rheumatologic--normal range of motion. Psychiatric- AOx3, pleasant but anxious and very talkative, cooperative and polite Discharge Data Allergies Allergy/AdvReac Type Severity Reaction Status Date / Time lisinopril Allergy angioedema Verified 05/02/21 14:47 Consultations 04/24/21 15:13 ED Decision to Admit Stat Hospital Course (1) Mild tongue swelling: Tongue swelling- May have had an element of angioedema associated lisinopril 1 week or so ago, but has been off since that time Patient reports similar symptoms when he had eaten peanuts and/or cashews in the past, but is eaten none recently (but did endorse container of peanut butter at home which he has used as well as eating cereals with almonds in them and picking them out. We did discuss that this would not be effective if he did have an allergy to such but would expect more of an anaphylactic reaction but he denied this in the past) He did have Meals on Wheels, ?question with the may been some contaminant in the food. Dexamethasone 6 mg IV given in ER--> tapered and continued on prednisone taper at discharge Benadryl prn Famotidine BID Lantus QAM given DM as below Tolerated regular diet without issue Hyperglycemia/DM II , uncontrolled Previously on Farxiga/Janumet in past possibly but was d/c due to "lows of 78/80" in the evenings he believes he remembers after lengthy conversation. He even had requested a new meter as well because once he stopped those (initially thought due to cost), his sugars were in the 3-400s when previously he was in the 1-200s. Discussed A1c 9.2 from prior 8.7 (previous to that was 6.7) his sugars have likely been that high due to not controlling his diabetes Pharmacy consulted for glycemic control in patient with DM on metformin 1gm BID (prior on Janumet d/c dt cost) with A1c 9.2 BSGs were elevated, 2nd to steroids --> discussed with pharmacy and came up with sliding scale for Lantus for once daily administration at d/c to obtain control of DM custodial as well Date Prednisone Dose Lantus Dose 04/27 - 04/28 40 mg 40 units 04/29 - 04/30 30 mg 35 units 05/01 - 05/02 20 mg 30 units 05/03 - 05/04 10 mg 25 units 05/05 and ongoing 0 mg 20 units Given rx for additional lancets/strips. Rec f/u with Endocrinology and made PCP appt for this week. Instructed to check sugars 4x/daily and record dietart intake for follow up so that they can make additional dietary recommendations. He does admit to lots of sweets/pastries and eating out at [employer]/restaurants Also scheduled f/u with Allergy/immunology at d/c --> Of note, patient started on amlodipine in leui of lisinopril for BP control --> did discuss if continued issues while tapering off of steroids could consider this as additional source as they have been known to cause angioedema but of unknown cause C1E pending at time of discharge CM consulted --> arranged for home health to help with insulin monitoring. Did have RN have patient demonstrate ability to perform prior to sending on such (2) Hypertension: Elevated outpatient -- lisinopril with angioedema as above and was placed on amlodipine Amlodipine continued but elevated pressures 2nd to steroids. Asymptomatic and instructed to continue monitoring BPs at home as he had been checking 2x/daily and if remains elevated/not feeling well to call PCP sooner May need increase in amlodipine but as discussed above, if concerns for angioedema 2nd to CCB, consider HCTZ or BB. --> DId get 1 dose HCTZ while inpatient without issue (3) Hyperlipidemia: Hold simvastatin/atorvastatin for now, can resume in AM but will need clarified as unusual to be on both --> Review of med rec with patient on atorvastatin and simvastatin was discontinued --> edited at d/c (4) Type 2 diabetes mellitus: Hold Metformin while inpatient Glucose on AM labs 270 A1c 9.2, uncontrolled States they have been high at home but better when on Janumet in the past with ranges in the 100s vs 2-300s --> states this was stopped he was told because too $$ but as above, due to lows when A1c in 7s Discussed not safe for d/c on high dose steroids without coverage Demonstrated ability to inject Lantus with RN (DM educator not on over weekend but would rec f/u outpt as above) Lantus with tapering at d/c while on steroids and instructed to continue 20units daily after done with the steroids. To check sugars 4/x daily and alert of any highs/lows prior to f/u with PCP +/- Endocrinology Provided rx for additional supplies. CM checked cost of Lantus ($8) and should be affordable -- arranged for [facility] Home Health to accept patient to follow and asked for Wednesday visit Total Time Total Time Spent Total Time Spent (In Minutes): 60 Discharge Plan Discharge Items Patient Disposition: Home - Self-Care Reason For Visit: SWOLLEN TONGUE Discharge Diagnosis: Angioedema Goals: You have been hospitalized for an acute medical problem. During your stay at [facility], we have made an effort to correct the problem that brought you to the hospital while keeping you as comfortable as possible. Medications were used to bring your condition under control and your discharge instructions will include directions for any medications you should take after leaving the hospital. Please make sure you see your Primary Care Provider as part of your follow up plan. Activity: Resume your previous activity Non-emergency contact: Primary Care Provider Call non-emergency contact if: you have any medication questions, your symptoms worsen and your pain is concerning for you Follow-up/Referrals: Anh Tanner PA-C [Physician Household Appliance Repairer] - 05/01/21 11:00 am (Route Relief Driver apptointment, for angioedema) Barrington Gallo MD [Physician] - (DM II) Aramis Small DO [Primary Care Provider] - 05/02/21 2:30 pm Lionel Che MD [Physician] - Diet: Carb Consistent or DM2 and Heart Healthy Addtl Attending Provider Instructions: You have been hospitalized for swelling of your tongue. You were given STEROIDs (like PREDNISONE) to bring down swelling and this has improved. This could have been from peanuts/cashews or food allergies and it is recommended to stay away from all nuts and closely look at food labels and ask restuarants when out to eat to make sure you don't eat these. You should also avoid eating cereals as you have done in the past with nuts even when you pick these out because they are still touching your food and can cause an issue. DO NOT eat peanut butter as well because of this. You have been set up with an allergy/immunology medical provider, Anh Tanner, on May 01 at 11am. Your primary care provider Dr Small has an appointment with you the following day on May 02 at 2:30pm. Your diabetes has been a little worse recently and your sugars have been HIGH. Your PCP should continue to monitor and help make adjustments to help get this better under control in the longwall machine operator helper. Steroids make these higher but you need these for the next couple of days to help with swelling and we will give you extra insulin --- PLEASE FOLLOW the following scale to see how much insulin (LANTUS) you should be taking while on the PREDNISONE and then you will continue with 20 units of LANTUS INSULIN EVERY MORNING. Date Prednisone Dose Lantus Dose 04/27 - 04/28 40 mg 40 units 04/29 - 04/30 30 mg 35 units 05/01 - 05/02 20 mg 30 units 05/03 - 05/04 10 mg 25 units 05/05 AND THEN DAILY AFTER 0 mg 20 units You will need to check your sugars four times daily and it is recommended to keep a log of these as well as your food intake at that time for your follow up with your doctor. If you have symptoms of feeling unwell you should check at that time and PLEASE NOTIFY YOUR DOCTOR FOR ANY VALUES THAT ARE LESS THAN 80! You should consider follow up with a diabetes doctor and you will be called on Wednesday to see about getting you in with one for closer monitoring. As discussed, there is a small amount of people who have a reaction to your blood pressure pill, amlodipine, and if you notice any increased swelling/difficulty swallowing/shortness of breath, you should stop this immediately and call your doctor. Otherwise, please continue this medication and you can talk with your doctor about increasing this if needed if your blood pressures stay high. Please continue to check your blood pressure twice daily at home. Please return to the emergency department if you have any fever, chills, shortness of breath, chest pain, problems swallowing, or any other symptoms that worry you. It has been a pleasure being a part of the medical team taking care of you while you have been in the hospital. Take care! Pending Studies at Discharge: Yes Studies:: C1 esterase Stand-Alone Forms: My [facility] Medications and DC Order Prescriptions: New Lantus Solostar U-100 Insulin 100 unit/mL (3 mL) insulin pen See Rx Instructions .ROUTE .COMPLEX Qty: 15 RF: 0 prednisone 10 mg tablet See Rx Instructions .ROUTE .COMPLEX Qty: 20 RF: 0 (DME) lancets [OneTouch Delica Lancets] 33 gauge misc See Rx Instructions .Route Qty: 120 RF: 0 Continued (DME) OneTouch Ultra Blue Test Strip Strip See Dose Instructions .ROUTE .MEDSUPPLY Qty: 300 RF: 3 metformin 1,000 mg tablet 1,000 mg PO BID Qty: 180 RF: 3 diphenhydramine HCl [Benadryl Allergy] 25 mg tablet 25 mg PO HS PRN (Reason: Allergic Symptoms) RF: 0 atorvastatin 20 mg tablet 20 mg PO QPM Qty: 90 RF: 3 amlodipine 5 mg tablet 5 mg PO DAILY Qty: 90 RF: 3 aspirin 81 mg tablet,delayed release (DR/EC) 81 mg PO QAM RF: 0 (DME) lancets [OneTouch Delica Lancets] 33 gauge misc See Dose Instructions .ROUTE .MEDSUPPLY Qty: 100 RF: 0 cholecalciferol (vitamin D3) 2,000 unit capsule 2,000 units PO QAM RF: 0 Ocuvite Adult 50 Plus 250-5-1 mg Capsule 1 cap PO QAM RF: 0 Discontinued simvastatin 20 mg tablet 20 mg PO QPM RF: 0 No Action (DME) pen needle, diabetic 33 gauge x 5/16" needle See Rx Instructions .Route Qty: 100 RF: 1 Discharge Orders: Discharge Order (Routine); Ordered 04/26/21 Ordered By: Autumn Alonso/Other Patient Handouts: A1C, High Blood Sugar (Hyperglycemia), Managing Type 2 Diabetes Admission Data Admit Date/Time: 04/24/21 15:58 Attending Provider: Jose Martin Sandoval Admit Provider: Shar Crowder Primary Care Provider: Aramis Small. Other Providers: Shar Crowder ; [facility],Home Healthcare Other Interventions: Discharge Summary Assessment (RN) Last Done: 04/26/21 16:06 Supervising Physician Co-Signing Physician Notes Attending Attestation and Discharge Note - Pt seen/examined, chart reviewed, care plan d/w CAIN Boo. I agree with the chatterjee components of her discharge documentation. 60yo male with intellectual disability, T2DM, HTN - presented with angioedema. Likely VERONIKA inhibitor vs food allergy. Patient was taken off the VERONIKA 1 week prior but seemed confused about his meds thus cannot rule out that he didn't take the VERONIKA inadvertently once again. Pt's angioedema improved with steroids & time. Due to uncontrolled DM he was seen by the parent educator. He will d/c home on once-daily lantus. Home health will be set up to ensure compliance with med regimen, etc. He will be referred to [facility] to ensure that this episode was not due to a food allergy. Discharge exam - gen - NAD neck - no swelling or stridor HEENT - no angioedema or tongue swelling, throat clear, voice clear heart - RRR, s1 s2 lungs - CTA b/l, no wheeze abd - soft NT ext - no edema Jose Martin Sandoval MD Coding Level of Care Code D/C DAY MANAGEMENT >30 MINS Diagnoses Mild tongue swelling R22.0 Hypertension I10 Hypertension type: essential hypertension Hyperlipidemia E78.5 Hyperlipidemia type: unspecified Type 2 diabetes mellitus E11.9 Diabetes mellitus complication status: without complication Diabetes mellitus longwall machine operator helper insulin use: without longwall machine operator helper use
[2021-04-26] MEDS ORDERED: FAMOTIDINE 20 MG TAB PO SCH (21:00)
[2021-04-27] MEDS ORDERED: predniSONE 20 MG TAB PO SCH (09:00)
[2021-04-30 13:56] LABS: C1 Esterase Inhibitor 35 mg/dL (21-39)
== END 2021-04-26 18:55 | disposition home or self-care (01) ==
LOC: ED 13:00 → EDINP 13:00 → SUATTDRO 15:58 → 2N 22:10